=== PATIENT | male | born 1970 | race Caucasian/White ===

== ENCOUNTER 2016-08-14 20:44 | Emergency (ER) | payer SELFPAY ==
[~2016-08-14] VITALS: Ht 172.7 cm; Wt 103.0 kg
[2016-08-14 20:49] VITALS: Ht 172.7 cm; Wt 103.0 kg
--- NOTE | 2016-08-14 22:17 | ERD ---
ER Documentation Chief Complaint Date/Time DATE: 08/14/16 TIME: 22:10 Chief Complaint shakey since waking up this am. denies sob/cp HPI 46-year-old male presents emergency department complaining of shakiness in his hands and head since this morning. Patient states he woke up with these symptoms and has never experienced this in the past. He states the shakiness has been constant since today and unchanged. He denies any recent illness, fall , or head injury. He denies fever, chills, nausea, vomiting, blurred vision or change in vision. He denies a history of liver problems or alcoholism although he notes he drinks 2-3 beers per day. He denies any history of drug or medication use. He denies any dysuria or hematuria. He denies headache and abdominal pain. He notes high stress at work recently and decreased ability to sleep. He also notes a 3 year history of a lump to the medial aspect of his left knee. 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 States the bump is painful with pressure or kneeling down and is asking if he can be removed while in the emergency department today. ROS All systems reviewed and are negative except as per history of present illness. Medications Home Meds Active Scripts Melatonin-Pyridoxine Hcl (Melatonin) 1-10 Mg Tablet, 1 TAB PO HS for 7 Days, TAB Prov:CHRISSY GRANT PA-C 08/14/16 Lorazepam* (Ativan*) 0.5 Mg Tablet, 0.5 MG PO Q8, #10 TAB Prov:CHRISSY GRANT PA-C 08/14/16 Allergies Allergies: Coded Allergies: No Known Drug Allergies (Verified Allergy, Unknown, 08/14/16) PMhx/Soc Medical and Surgical Hx: pt denies Medical Hx, pt denies Surgical Hx Hx Alcohol Use: Yes (1-2 beers/ day) Hx Substance Use: No Hx Tobacco Use: No Smoking Status: Never smoker Physical Exam Vitals Vital Signs Date Time Temp Pulse Resp B/P Pulse Ox O2 Delivery O2 Flow Rate FiO2 08/14/16 23:28 97.0 77 19 125/85 97 Room Air 08/14/16 20:49 97.4 93 20 158/97 98 Physical Exam Const: Well-developed, well-nourished, no acute distress Head: Atraumatic Eyes: EOMI, PERRLA normal Conjunctiva ENT: Normal External Ears, Nose and Mouth. Posterior pharynx clear without tonsillar erythema or swelling Neck: Full range of motion..~ No meningismus. Resp: Clear to auscultation bilaterally Cardio: Regular rate and rhythm, no murmurs Abd: Soft, non tender, non distended. Normal bowel sounds Skin: 2 cm well-circumscribed mass located on the medial aspect of the left knee. Nonmobile. Non-erythematous. Slight tenderness to palpation. Joint otherwise nonswollen and nonerythematous. Patient has full range of motion at knee joint and good strength. Distal sensation intact. Patient able to bear full weight and ambulate without difficulty. No petechiae or rashes Back: No midline or flank tenderness Ext: No cyanosis, or edema Neur: Cranial nerves II through XII intact. No pronator drift. Finger to nose intact. Good strength of upper and lower extremities. Awake and alert Psych: Normal Mood and Affect Result Diagram: 08/14/16221808/14/162218 Results 24 hrs Laboratory Tests Test 08/14/16 22:19 White Blood Count 7.110^3/ul Red Blood Count 5.4110^6/ul Hemoglobin 15.9g/dl Hematocrit 48.2% Mean Corpuscular Volume 89.1fl Mean Corpuscular Hemoglobin 29.4pg Mean Corpuscular Hemoglobin Concent 33.0g/dl Red Cell Distribution Width 12.5% Platelet Count 50218^3/UL Mean Platelet Volume 10.0fl Neutrophils % 40.4% Lymphocytes % 47.2% Monocytes % 10.0% Eosinophils % 1.7% Basophils % 0.4% Nucleated Red Blood Cells % 0.0/100WBC Neutrophils # 2.910^3/ul Lymphocytes # 3.310^3/ul Monocytes # 0.710^3/ul Eosinophils # 0.110^3/ul Basophils # 0.010^3/ul Nucleated Red Blood Cells # 0.010^3/ul Sodium Level 140mmol/L Potassium Level 4.4mmol/L Chloride Level 103mmol/L Carbon Dioxide Level 29mmol/L Anion Gap 12 Blood Urea Nitrogen 24mg/dl Creatinine 0.91mg/dl Glucose Level 100mg/dl Calcium Level 8.9mg/dl Total Bilirubin 0.2mg/dl Direct Bilirubin 0.00mg/dl Indirect Bilirubin 0.2mg/dl Aspartate Amino Transf (AST/SGOT) 29IU/L Alanine Aminotransferase (ALT/SGPT) 60IU/L Alkaline Phosphatase 91IU/L Total Protein 7.9g/dl Albumin 4.9g/dl Globulin 3.00g/dl Albumin/Globulin Ratio 1.63 Procedures/MDM This is a 46-year-old otherwise healthy male who presents the emergency department complaining of new onset tremor in bilateral hands as well as a sensation of shakiness his head. Patient's physical exam unremarkable however a slight tremor is noted in bilateral hands when outstretched. Cranial nerves otherwise intact and there is no evidence of weakness or neurologic deficit. Patient able to ambulate without difficulty. Patient exhibits good strength. No history of head trauma or liver injury. Low suspicion for Parkinson's disease, hepatic encephalopathy, cerebral tumor, or drug withdrawal. CBC without any evidence of severe anemia or systemic infection. CMP without evidence of major electrolyte imbalance, alkalosis, acidosis, renal or liver injury. Physical exam and history consistent with benign essential tremor likely due to recent stress and lack of sleep. Based on patient's history of present illness and physical examination the decision was made to discharge. The patient was re-evaluated after ED treatment and stabilizing measures, and symptoms have improved. There is no evidence of life threatening injuries or illnesses at this time. On re-examination, patient resting in no distress, stable vital signs, reports feeling better and safe for discharge with outpatient follow up with PMD in 1-2 days. Patient given return precautions. Departure Diagnosis: Primary Impression: Episode of shaking Additional Impressions: Lack of adequate sleep Stress reaction CHRISSY GRANT PA-C Aug 14, 2016 22:17
[2016-08-14 22:40] LABS: ADD SCAN DIFF NO
[2016-08-14 22:42] LABS: BASOPHILS % 0.4 % (0.0-2.0); EOSINOPHILS # 0.1 10^3/ul (0.0-0.5); EOSINOPHILS % 1.7 % (0.0-7.0); HEMATOCRIT 48.2 % (42.0-52.0); HEMOGLOBIN 15.9 g/dl (14.0-18.0); LYMPHOCYTES # 3.3 10^3/ul (0.8-2.9); LYMPHOCYTES % 47.2 % (15.0-51.0); MEAN CORPUSCULAR HEMOGLOBIN 29.4 pg (29.0-33.0); MEAN CORPUSCULAR VOLUME 89.1 fl (82.0-101.0); MONOCYTE # 0.7 10^3/ul (0.3-0.9); NEUTROPHIL # 2.9 10^3/ul (1.6-7.5); NEUTROPHILS % 40.4 % (39.0-77.0); PLATELET COUNT 249 10^3/UL (140-415); RED BLOOD COUNT 5.41 10^6/ul (4.70-6.10); RED CELL DISTRIBUTION WIDTH 12.5 % (11.5-14.5); WHITE BLOOD COUNT 7.1 10^3/ul (4.8-10.8)
[2016-08-14] MEDS ORDERED: MELA1TAB9 PO (22:49)
[2016-08-14] MEDS ORDERED: LORA-441 PO (22:49)
[2016-08-14 23:05] LABS: ALBUMIN 4.9 g/dl (3.3-4.9); ALBUMIN/GLOBULIN RATIO 1.63; BILIRUBIN,INDIRECT 0.2 mg/dl (0-1.1); BILIRUBIN,TOTAL 0.2 mg/dl (0.2-1.3); CALCIUM 8.9 mg/dl (8.4-10.2); CREATININE 0.91 mg/dl (0.61-1.24); POTASSIUM 4.4 mmol/L (3.5-5.1); TOTAL PROTEIN 7.9 g/dl (6.1-8.1)
[2016-08-14 23:28] VITALS: BP 125/85; PULSE 77; RESP 19; TEMP 97
== END 2016-08-14 23:28 | disposition home or self-care (01) ==
LOC: FTE 20:44
DX: R25.1 Tremor, unspecified (principal); F43.9 Reaction to severe stress, unspecified; Z72.820 Sleep deprivation
CPT/HCPCS: 80053; 85025; 99283